=== PATIENT | male | born 2000 ===

== ENCOUNTER 2022-03-04 19:14 | Emergency (ER) | payer OTHER, MEDICAID, SELFPAY ==
[2022-03-04 19:21] VITALS: BP 141/67; PULSE 104; RESP 22; TEMP 37.1; O2SAT 97
--- NOTE | 2022-03-04 19:24 | DI.RAD.S_ITS ---
PROCEDURE: XR CHEST 2V INDICATIONS: cough/soa TECHNIQUE: 2 views of the chest were acquired. COMPARISON: None. FINDINGS: Surgical changes and devices: None. Lungs and pleura: Lungs are clear. No pleural effusions or pneumothorax. Mediastinum: Mediastinal contours are normal. Heart size is normal. Bones and chest wall: No suspicious bony abnormalities. Soft tissues appear unremarkable. IMPRESSION: No acute cardiopulmonary disease. Dictated by: Lynn Carmona M.D. on 03/04/2022 at 20:07 Approved by: Lynn Carmona M.D. on 03/04/2022 at 20:08
[2022-03-04 19:43] LABS: COVID19 -Nasal RAPID Negative (Negative)
[2022-03-04 20:31] VITALS: BP 135/69; PULSE 79; RESP 20; O2SAT 99
[2022-03-04 22:02] LABS: Adenovirus Not Detected (Not Detect); B. parapertussis Not Detected (Not Detecte); Bordetella pertussis Not Detected (Not Detecte); Chlamydophila pneumoniae Not Detected (Not Detect); Coronavirus 229E Not Detected (Not Detect); Coronavirus HKU1 Not Detected (Not Detect); Coronavirus NL 63 Not Detected (Not Detect); Coronavirus OC43 Not Detected (Not Detect); Human Metapneumovirus Not Detected (Not Detect); Human Rhinovirus/Enterovirus Not Detected (Not Detect); Influenza A Not Detected (Not Detect); Influenza B Not Detected (Not Detect); Mycoplasma pneumoniae Not Detected (Not Detect); Parainfluenza Virus 1 Not Detected (Not Detect); Parainfluenza Virus 2 Not Detected (Not Detect); Parainfluenza Virus 3 Detected (Not Detect); Parainfluenza Virus 4 Not Detected (Not Detect); Respiratory Syncytial Virus Not Detected (Not Detect); SARS- CoV-2 Not Detected (Not Detecte)
--- NOTE | 2022-03-05 04:09 | ED_ITS ---
HPI - URI/Sore Throat General Chief Complaint: Upper Respiratory Symptoms Stated Complaint: Sick Time Seen by Provider: 03/04/22 20:17 Source: patient Mode of arrival: Ambulatory History of Present Illness HPI Narrative: 21-year-old male former smoker without chronic medical problems presents with family in the chief complaint of vague and nonspecific upper respiratory symptoms over the past few days including body aches, nasal congestion, sore throat and a dry and hacking cough. He is not vaccinated against COVID and denies any obvious or known exposures to ill persons. He is had no vomiting or diarrhea and denies any dysuria, frequency or urgency. He denies any significant work of breathing. He has taken no Tylenol or Motrin Review of Systems Review of Systems Narrative: GENERAL: See HPI HEENT: See HPI RESPIRATORY: See HPI CARDIOVASCULAR: Denies chest pain, palpitations, orthopnea, edema, GASTROINTESTINAL: See HPI : Denies dysuria, frequency, incontinence, hematuria, urinary retention. MUSCULOSKELETAL: denies weakness, joint pain, or bony pain SKIN: Denies rash, skin lesions, or other NEUROLOGIC: Denies weakness, headache, numbness, change in speech, confusion, seizures, incoordination. PSYCHIATRIC: No concerning psychosocial issues. 12 point review of systems is negative except for those stated above Patient History Social History Smoking Status: Former smoker Smoking Status: Former smoker Exam Narrative Exam Narrative: GENERAL: [21] year old patient appears stated age. Well-developed patient, in mild distress. HEAD: Atraumatic. Normocephalic. EYES: Pupils equal round and reactive. Extraocular motions intact. No scleral i cterus. No injection or drainage. ENT: Nose without bleeding, purulent drainage. Throat without erythema, tonsillar hypertrophy or exudate. Airway patent. Clear postnasal drip NECK: Trachea midline. Non tender CARDIOVASCULAR: Regular rate and rhythm without murmurs, gallops, or rubs. RESPIRATORY: Clear to auscultation. Breath sounds equal bilaterally. No wheezes, rales, or rhonchi. GASTROINTESTINAL: Abdomen soft, non-tender, nondistended. EXTREMITIES: No edema or joint tenderness. BACK: Nontender without deformity or crepitance. No flank tenderness. NEURO: AOx3. SKIN: No rash or erythema of visible areas Initial Vital Signs Initial Vital Signs: Vital Signs Temperature 98.8 F 03/04/22 19:21 Pulse Rate 104 H 03/04/22 19:21 Respiratory Rate 22 03/04/22 19:21 Blood Pressure 141/67 H 03/04/22 19:21 Pulse Oximetry 97 03/04/22 19:21 Oxygen Delivery Method 03/04/22 19:21 Course Orders Ordered: ED Orders 03/04/22 19:24 Chest [XR chest 2V] Stat COVID19 -Nasal RAPID/Pre-Proc Stat 03/04/22 20:52 Respiratory Panel (Film Array) Stat Vital Signs Vital signs: Vital Signs - 8 hr 03/04/22 20:31 Pulse Rate 79 Respiratory Rate 20 Blood Pressure 135/69 Pulse Oximetry 99 Oxygen Delivery Method Room Air MDM - URI/Sore Throat Lab Data Labs: Lab Results 03/04/22 03/04/22 Range/Units 19:24 20:52 Chlamy pneumoniae PCR Not detected (Not Detect) Adenovirus (PCR) Not detected (Not Detect) B. pertussis DNA (PCR) Not detected (Not Detecte) B.parapertussis DNA PCR Not detected (Not Detecte) Coronavirus OC43 (PCR) Not detected (Not Detect) Coronavirus HKU1 (PCR) Not detected (Not Detect) Coronavirus 229E (PCR) Not detected (Not Detect) SARS-CoV-2 (PCR) Negative Not detected (Negative) Coronavirus NL63 (PCR) Not detected (Not Detect) Human Metapneumovir PCR Not detected (Not Detect) Influenza Type A (PCR) Not detected (Not Detect) Influenza Type B (PCR) Not detected (Not Detect) M. pneumoniae (PCR) Not detected (Not Detect) Parainfluenza 1 (PCR) Not detected (Not Detect) Parainfluenza 2 (PCR) Not detected (Not Detect) Parainfluenza 3 (PCR) Detected H (Not Detect) Parainfluenza 4 (PCR) Not detected (Not Detect) RSV (PCR) Not detected (Not Detect) Entero/Rhino (PCR) Not detected (Not Detect) Imaging Data Chest x-ray: Radiologist's Impression: Freddie Barahona??21??M??2000 ? Allergy/Adv: Not Recorded Close Chest X-Ray (Signed) Lynn Carmona - 03/04/22 Launch?Image [address] [address] XRay Report Signed Patient: Freddie Barahona MR#: [id number] : 2000 Acct:[id number] Age/Sex: 21 / M Date of Service: 03/04/22 Loc: ED Accession Number: [id number] ?? Procedure: XR chest 2V Ordering Provider: Benjamin Shea D.O. PROCEDURE:? XR CHEST 2V ? INDICATIONS:? cough/soa ? TECHNIQUE:? 2 views of the chest were acquired.? ? COMPARISON:? None. ? FINDINGS:? ? Surgical changes and devices:? None.? ? Lungs and pleura:? Lungs are clear.? No pleural effusions or pneumothorax.? ? Mediastinum:? Mediastinal contours are normal.? Heart size is normal.? ? Bones and chest wall:? No suspicious bony abnormalities.? Soft tissues appear unremarkable.? ? IMPRESSION:? No acute cardiopulmonary disease.? ? ? Dictated by: Lynn Carmona M.D. on 03/04/2022 at 20:07 ? ? Approved by: Lynn Carmona M.D. on 03/04/2022 at 20:08 ? Discharge Plan Departure Patient Disposition: Home Clinical Impression: Parainfluenza Instructions: DI for Viral Upper Respiratory Infection -- Adult Activity Restrictions/Additional Instructions: *You have been diagnosed with [viral upper respiratory infection due to parainfluenza virus] *What to do: *Please continue to take your regular medications as directed. [ ] New medication prescriptions sent to your pharmacy: [ ] [ ] New medication written as a paper prescription [x ] No new medications given *Please follow up with your primary care provider in 2-3 days, call for an appointment. Let them know you were seen in the Emergency Department and that we ask that you be seen in follow up. We will electronically transmit a record of today's note if your PCP is in our system *If you do not have a primary care provider please contact the [facility] Resource line at [phone]. They will ask some questions about your medical history and help get you set up with a doctor in the community. *Return to Emergency Department if you should have any new, worsening or concerning symptoms, such as [fever greater than 101 F, shaking chills, worsening pain, persistent vomiting or other bothersome symptoms] Referrals: Miscellaneous,Doctor, MD [Primary Care Provider] - Visit Report Forms: Patient Portal/API
== END 2022-03-04 22:16 | disposition home or self-care (01) ==
PROVIDERS: Emergency Provider Emergency Medicine
DX: B34.8 Other viral infections of unspecified site (principal); Z20.822 Contact with and (suspected) exposure to COVID-19
CPT/HCPCS: 71046; 87633; 87635; 99282; 99283; C9803